=== PATIENT | female | born 1970 | race Caucasian/White ===

== ENCOUNTER → 2017-04-15 | Outpatient (CLI) | payer BC ==
--- NOTE | 2017-04-15 14:00 | MR ---
EXAMINATION TYPE: MR cervical spine wo con DATE OF EXAM: 04/15/2017 1:52 PM COMPARISON: NONE HISTORY: Neck/charan shoulder pain, headaches, weakness rt arm x 2 years Multiplanar MultiSpin echo imaging of the cervical spine was performed. Comparison: none C2-C3: No evidence for degenerative disc disease. No disc bulge/herniation or protrusion. No Canal stenosis. Foramina are patent bilaterally. C3-C4: No evidence for degenerative disc disease. No disc bulge/herniation or protrusion. No Canal stenosis. Foramina are patent bilaterally. C4-C5: No evidence for degenerative disc disease. No disc bulge/herniation or protrusion. No Canal stenosis. Foramina are patent bilaterally. C5-C6: Mild disc desiccation is noted. Broad-based posterior disc bulge with mild effacement ventral thecal sac. No evidence for kitty disc herniation or central stenosis. Foramina are patent bilaterall y. C6-C7: No evidence for degenerative disc disease. No disc bulge/herniation or protrusion. No Canal stenosis. Foramina are patent bilaterally. C7-T1: No evidence for degenerative disc disease. No disc bulge/herniation or protrusion. No Canal stenosis. Foramina are patent bilaterally. Cervical segments are intact. There is normal alignment. Cervical spinal cord is of normal signal. Craniovertebral junction relationships are within normal limits. Incidental thoracic scoliosis conv ex to the left. IMPRESSION: 1. C5-C6: Mild disc desiccation is noted. Broad-based posterior disc bulge with mild effacement ventr al thecal sac
== END | disposition home or self-care (01) ==
LOC: RADMRIMAIN 12:44
PROVIDERS: ATTEND Internal Medicine
DX: M50.222 Other cervical disc displacement at C5-C6 level (principal)
CPT/HCPCS: 72141

== ENCOUNTER → 2017-11-19 | Outpatient (CLI) | payer BC ==
--- NOTE | 2017-11-19 10:17 | MM ---
Reason for exam: screening (asymptomatic). Baseline mammogram. Physical Findings: Nurse did not find any significant physical abnormalities on exam. MG Screening Mammo w CAD Bilateral CC and MLO view(s) were taken. The breast tissue is heterogeneously dense. This may lower the sensitivity of mammography. No suspicious calcifications or masses are seen. There is no discrete abnormality. These results were verbally communicated with the patient and result sheet given to the patient on 11/19/17. ASSESSMENT: Negative, BI-RAD 1 RECOMMENDATION: Routine screening mammogram of both breasts in 1 year.
== END | disposition home or self-care (01) ==
LOC: RADMAMWWP 09:29
PROVIDERS: ATTEND Internal Medicine
DX: Z12.31 Encounter for screening mammogram for malignant neoplasm of breast (principal)
CPT/HCPCS: 77067

== ENCOUNTER → 2018-01-05 | Outpatient (CLI) | payer BC | END | disposition home or self-care (01) | LOC: RADXRMAIN 10:11 | PROVIDERS: ATTEND Podiatrist Foot Surgery | DX: Z53.9 Procedure and treatment not carried out, unspecified reason (principal) ==

== ENCOUNTER 2018-01-20 04:18 | Emergency (ER) | payer BC ==
[2018-01-20] MEDS ORDERED: NITROGLYCERIN SL TABS 0.4 MG TAB SUBLINGUAL STA (04:40)
[2018-01-20] MEDS ORDERED: ASPIRIN 81 MG PO STA (04:40)
[2018-01-20] MEDS ORDERED: MORPHINE SULFATE 4 MG/ML SYRINGE IVP STA (04:40)
[2018-01-20 04:54] LABS: Basophils % (A) 1 %; Eosinophils # (A) 0.1 k/uL (0-0.7); Eosinophils % (A) 2 %; HGB 14.4 gm/dL (11.4-16.0); Lymphocytes # (A) 2.3 k/uL (1.0-4.8); Lymphocytes % (A) 30 %; MCH 29.4 pg (25.0-35.0); MCHC 34.2 g/dL (31.0-37.0); MCV 86.1 fL (80.0-100.0); Mean Platelet Volume 7.3; Monocytes # (A) 0.4 k/uL (0-1.0); Monocytes % (A) 5 %; Neutrophils # (A) 4.7 k/uL (1.3-7.7); Neutrophils % (A) 62 %; Platelet Count 310 k/uL (150-450); RBC 4.87 m/uL (3.80-5.40); RDW 12.8 % (11.5-15.5); WBC 7.7 k/uL (3.8-10.6)
[2018-01-20 05:02] LABS: ALT 27 U/L (9-52); AST 26 U/L (14-36); Albumin 4.7 g/dL (3.5-5.0); Alkaline Phosphatase 82 U/L (38-126); Anion Gap 12 mmol/L; Blood Urea Nitrogen 16 mg/dL (7-17); Calcium 9.4 mg/dL (8.4-10.2); Carbon Dioxide 26 mmol/L (22-30); Chloride 104 mmol/L (98-107); Glucose 101 mg/dL (74-99); Magnesium 1.9 mg/dL (1.6-2.3); Potassium 4.2 mmol/L (3.5-5.1); Sodium 142 mmol/L (137-145); Total Bilirubin 0.5 mg/dL (0.2-1.3); Total Protein 7.5 g/dL (6.3-8.2)
--- NOTE | 2018-01-20 05:05 | ED ---
Chest Pain HPI - General Chief Complaint: Chest Pain Stated Complaint: Rib Pressure, SOB Time Seen by Provider: 01/20/18 04:28 Source: patient Mode of arrival: ambulatory Limitations: no limitations - History of Present Illness Initial Comments: 47 years O female comes in with the chest pain chest pressure over the left side of the chest for ongoing for last 2 months now she said the symptoms got worse over the last 2-3 days and she is also short winded with minimal activity she been nauseous she had cold sweats no vomiting though and chest pain now gets worse with deep breaths, she denies any history of coronary artery disease he is a nonsmoker now according once a week family history she do not know about her family history. She denies any headache no neck stiffness has a chest pain has shortness of breath no abdominal pain no frequency urgency dysuria or symptoms of TIA or CVA - Related Data Home Medications Medication Instructions Recorded Confirmed Ibuprofen [Motrin] 800 mg PO DAILY PRN 01/20/18 01/20/18 LORazepam [Ativan] 0.5 mg PO DAILY PRN 01/20/18 01/20/18 Allergies Allergy/AdvReac Type Severity Reaction Status Date / Time No Known Allergies Allergy Verified 01/20/18 04:25 Review of Systems ROS Statement: Those systems with pertinent positive or pertinent negative responses have been documented in the HPI. ROS Other: All systems not noted in ROS Statement are negative. EKG Findings - EKG Comments: EKG Findings:: G is a normal sinus rhythm ventricular rate is 71 AR interval is 136 QRS duration is 84 QT/QTc is 390/420 8D of this EKG reveals T-wave inversion in lead [address] elevation or ST depression noticed in other leads, also noticed T-wave inversion in lead V1 Past Medical History Past Medical History: No Reported History History of Any Multi-Drug Resistant Organisms: None Reported Past Surgical History: Hysterectomy Additional Past Surgical History / Comment(s): ovarian cyst removal X2 Past Psychological History: No Psychological Hx Reported Smoking Status: Former smoker Past Alcohol Use History: None Reported Past Drug Use History: None Reported General Exam - General Exam Comments Initial Comments: General: The patient is awake and alert, in no distress, and does not appear acutely ill. Skin: Skin is warm and dry and no rashes or lesions are noted. Eye: Pupils are equal, round and reactive to light, extra-ocular movements are intact; there is normal conjunctiva bilaterally. Ears, nose, mouth and throat: There are moist mucous membranes and no oral lesions. Neck: The neck is supple, there is no tenderness or JVD. Cardiovascular: There is a regular rate and rhythm. No murmur, rub or gallop is appreciated. Respiratory: To auscultation bilateral, no wheezing no rhonchi no distress respiratory gong noticed Gastrointestinal: Soft, non-distended, non-tender abdomen without masses or organomegaly noted. There is no rebound or guarding present. Bowel sounds are unremarkable. Back: There is no tenderness to palpation in the midline. There is no obvious deformity. Musculoskeletal: Normal ROM, no tenderness, There is no pedal edema. There is no calf tenderness or swelling. No cords were appreciated. Neurological: CN II-XII intact, Cranial nerves III through XII are intact. There are no obvious motor or sensory deficits. Coordination appears grossly intact. Speech is normal. Psychiatric: Cooperative, appropriate mood & affect, normal judgment. 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 Cates Disposition Clinical Impression: Chest pain Disposition: HOME SELF-CARE Condition: Good Instructions: Chest Pain (ED) Is patient prescribed a controlled substance at d/c from ED?: No If prescribed controlled substance>3 days was MAPS reviewed?: No When asked, does pt state using other controlled substances?: No Referrals: Sabi Ley MD [Primary Care Provider] - 1-2 days Davide Wells MD [STAFF PHYSICIAN] - 1-2 days
[2018-01-20 05:09] VITALS: BP 138/83; PULSE 69; RESP 16
[2018-01-20 05:10] LABS: D-Dimer 0.23 mg/L FEU (<0.60); Partial Thromboplastin Time 23.1 sec (22.0-30.0); Prothrombin Time 9.5 sec (9.0-12.0)
[2018-01-20 05:15] LABS: Creatine Kinase 90 U/L (30-135)
--- NOTE | 2018-01-20 05:16 | XR ---
EXAM: XR Chest, 2 Views CLINICAL HISTORY: Reason: Chest Pain TECHNIQUE: Frontal and lateral views of the chest. COMPARISON: No relevant prior studies available. FINDINGS: Lungs: Unremarkable. No consolidation. Left lower lobe airspace disease favoring atelectasis. Pleural space: Unremarkable. No pneumothorax. Heart: Unremarkable. No cardiomegaly. Mediastinum: Unremarkable. Bones/joints: Unremarkable. IMPRESSION: 1. Left lower lobe airspace opacities favoring atelectasis.
[2018-01-20 05:28] LABS: Creatine Kinase MB 1.7 ng/mL (0.0-2.4); Troponin I <0.012 ng/mL (0.000-0.034)
[2018-01-20 06:00] VITALS: TEMP 98.7
== END 2018-01-20 05:54 | disposition home or self-care (01) ==
LOC: EC 04:18
DX: R07.9 Chest pain, unspecified (principal); Z87.891 Personal history of nicotine dependence; R11.0 Nausea; R06.02 Shortness of breath
CPT/HCPCS: 36415; 93005; 85379; 80053; 82550; 82553; 83735; 84484; 85025; 85610; 85730; 71046; 99285; 96374; J2270

== ENCOUNTER 2019-01-25 17:14 | Emergency (ER) | payer BC, OTHER ==
[2019-01-25 17:20] VITALS: TEMP 98.1
[2019-01-25] MEDS ORDERED: KETOROLAC 60 MG/2 ML VIAL IM STA (19:00)
[2019-01-25] MEDS ORDERED: DIPH,PERTUS(ACELL)TETVAC-LF 0.5 ML VIAL IM ONE (19:01)
--- NOTE | 2019-01-25 19:03 | ED ---
General Adult HPI - General Chief complaint: Extremity Injury, Lower Stated complaint: [facility] - leg/arm injury Time Seen by Provider: 01/25/19 17:23 Source: patient, RN notes reviewed, old records reviewed Mode of arrival: ambulatory Limitations: no limitations - History of Present Illness Initial comments: 48-year-old female patient past history of hysterectomy presents to ED with injury which she states was occurred at work. Patient states that a metal bar fell on her left humerus region as well as her left digit. Claritin. Patient does have some bruising in her left biceps region as well as her left distal femur. Patient states that she has had pain with ambulation. Patient denies any trauma to head or neck. Patient denies any other complaints. Systemic: Pt denies fatigue, myalgia, fever/chills, rash. Pt denies weakness, night sweats, weight loss. Neuro: Pt denies headache, visual disturbances, syncope or pre-syncope. HEENT: Pt denies ocular discharge or irritation, otalgia, rhinorrhea, pharyngitis or notable lymphadenopathy. Cardiopulmonary: Pt denies chest pain, SOB, heart palpitations, dyspnea on exertion. Abdominal/GI: Pt denies abdominal pain, n/v/d. : Pt denies dysuria, burning w/ urination, frequency/urgency. Denies new onset urinary or bowel incontinence. MSK: Pt denies myalgia, loss of strength or function in extremities. Neuro: Pt denies new onset weakness, paresthesias. - Related Data Home Medications Medication Instructions Recorded Confirmed No Known Home Medications 01/25/19 01/25/19 Allergies Allergy/AdvReac Type Severity Reaction Status Date / Time No Known Allergies Allergy Verified 01/25/19 17:20 Review of Systems ROS Statement: Those systems with pertinent positive or pertinent negative responses have been documented in the HPI. ROS Other: All systems not noted in ROS Statement are negative. Past Medical History Past Medical History: No Reported History History of Any Multi-Drug Resistant Organisms: None Reported Past Surgical History: Hysterectomy Additional Past Surgical History / Comment(s): ovarian cyst removal X2 Past Psychological History: No Psychological Hx Reported Smoking Status: Former smoker Past Alcohol Use History: None Reported Past Drug Use History: None Reported General Exam - General Exam Comments Initial Comments: Constitutional: NAD, AOX3, Pt has pleasant affect. HEENT: NC/AT, trachea midline, neck supple, no lymphadenopathy. Posterior pharynx non erythematous, without exudates. External ears appear normal, without discharge. Mucous membranes moist. Eyes PERRLA, EOM intact. There is no scleral icterus. No pallor noted. Cardiopulmonary: RRR, no murmurs, rubs or gallops, no JVD noted. Lungs CTAB in anterior and posterior rodríguez. No peripheral edema. Abdominal exam: Abdomen soft and non-distended. Abdomen non-tender to palpation in all 4 quadrants. Bowel sounds active in LLQ. No hepatosplenomegaly. No ecchymosis Neuro: CN II-XII grossly intact. No nuchal rigidity. MSK: Mild abrasion and bruise noted at distal left femur. Patient is active tenderness to range of motion of the knee. Patient is able to bear weight with pain. Mild ecchymoses and abrasion noted at left humerus region. Patient does have mild tenderness to palpation in this region. Full active range of motion of elbow. No other areas of noted injury or pain in upper or lower extremities. No posterior calf tenderness bilaterally, homans sign negative bilaterally. Posterior tibialis and radial pulse +2 bilaterally. Sensation intact in upper and lower extremities. Full active ROM in upper and lower extremities, 5/5 stregnth. Limitations: no limitations Course Vital Signs 01/25/19 17:18 Temperature 98.1 F Pulse Rate 75 Respiratory 16 Rate Blood Pressure 135/95 O2 Sat by Pulse 97 Oximetry Medical Decision Making - Medical Decision Making 48-year-old female patient past history of hysterectomy presents to ED with injury which she states was occurred at work. Patient states that a metal bar fell on her left humerus region as well as her left digit. Claritin. Patient does have some bruising in her left biceps region as well as her left distal femur. Patient states that she has had pain with ambulation. Patient denies any trauma to head or neck. Patient denies any other complaints. Patient also in stable, afebrile. Physical exam displayed: Mild abrasion and bruise noted at distal left femur. Patient is active tenderness to range of motion of the knee. Patient is able to bear weight with pain. Mild ecchymoses and abrasion noted at left humerus region. Patient does have mild tenderness to palpation in this region. Full active range of motion of elbow. No other areas of noted injury or pain in upper or lower extremities. No posterior calf tenderness bilaterally, homans sign negative bilaterally. Posterior tibialis and radial pulse +2 bilaterally. Sensation intact in upper and lower extremities. Full active ROM in upper and lower extremities, 5/5 stregnth. Plain film of the knee, humerus, femur, lower down display acute process. Patient discharged. Patient follow up with primary care provider. Patient brought orthopedic consult if pain continues. Case discussed with Dr. Snowden. Disposition Clinical Impression: Contusion, Abrasion Disposition: HOME SELF-CARE Condition: Stable Additional Instructions: Patient to adhere to previously discussed treatment plan and will take medication(s) as directed. Patient to follow up with PCP in 1-2 days. Patient to return to ED if symptoms do not improve. Follow-up with orthopedic consult. Follow-up with [facility] or primary care provider for return to work. Return to ER if condition worsens. Is patient prescribed a controlled substance at d/c from ED?: No Referrals: Sabi Ley MD [Primary Care Provider] - 1-2 days Sushil Neal MD [Medical Doctor] - 1-2 days
--- NOTE | 2019-01-25 19:07 | XR ---
EXAMINATION TYPE: XR femur LT DATE OF EXAM: 01/25/2019 COMPARISON: NONE HISTORY: Trauma. Pain. TECHNIQUE: 4 views FINDINGS: I see no fracture nor dislocation. Hip joint and knee joint appear intact. Soft tissues roly ear normal. IMPRESSION: Negative left femur exam.
--- NOTE | 2019-01-25 19:08 | XR ---
EXAMINATION TYPE: XR elbow complete LT DATE OF EXAM: 01/25/2019 COMPARISON: NONE HISTORY: Pain. Trauma. TECHNIQUE: 3 views FINDINGS: Joint spaces are normal. There is no sign of elbow joint effusion. Soft tissues appear norm al. There is no evidence of a fracture. IMPRESSION: Negative left elbow exam.
--- NOTE | 2019-01-25 19:08 | XR ---
EXAMINATION TYPE: XR knee 4V LT DATE OF EXAM: 01/25/2019 COMPARISON: NONE HISTORY: Knee pain TECHNIQUE: 4 views FINDINGS: I see no fracture nor dislocation. Joint spaces are normal. There is no sign of a knee join t effusion. IMPRESSION: Negative left knee exam.
--- NOTE | 2019-01-25 19:09 | XR ---
EXAMINATION TYPE: XR humerus LT DATE OF EXAM: 01/25/2019 COMPARISON: NONE HISTORY: Pain TECHNIQUE: 2 views FINDINGS: Shoulder joint and elbow joint appear intact. There are no pathologic calcifications. I see no fracture. IMPRESSION: Negative left humerus exam.
[2019-01-25 20:09] VITALS: BP 139/92; PULSE 83; RESP 18
== END 2019-01-25 20:08 | disposition home or self-care (01) ==
LOC: EC 17:14
DX: S70.12XA Contusion of left thigh, initial encounter (principal); S40.022A Contusion of left upper arm, initial encounter; Z87.891 Personal history of nicotine dependence; Z23 Encounter for immunization; W20.8XXA Other cause of strike by thrown, projected or falling object, initial encounter; Y92.69 Other specified industrial and construction area as the place of occurrence of the external cause; Y99.0 Civilian activity done for income or pay
CPT/HCPCS: 73552; 73060; 73080; 73564; 90715; 99284; 96372; 90471; J1885

== ENCOUNTER 2019-05-19 12:41 | Day surgery (SDC) | payer BC ==
[2019-05-13 11:25] VITALS: BMI 29.7
[~2019-05-19 12:41] MED LIST: DEXAMETHASONE SOD PHOSPHATE 10 MG/ML 1 ML VIAL IV ONE; HYDROmorphone 0.5 MG/0.5 ML SYRINGE IVP PRN; LACTATED RINGERS 1,000 ML IV SCH; LIDOCAINE 1% 20 ML VIAL (10MG/ML) FOR IV START INTRADERMA PRN; MIDAZOLAM 2 MG/2 ML VIAL IV PRN; ONDANSETRON 4 MG/2 ML VIAL IVP ONE; Pre Op ABX Message 1 EACH MISC MISCELLANE ONE; fentaNYL (PF) 50 MCG/ML 2 ML AMP IV PRN
[2019-05-19 12:57] VITALS: TEMP 97.8
[2019-05-19] MEDS ORDERED: LACTATED RINGERS 1,000 ML IV ONE (12:58)
[2019-05-19] MEDS ORDERED: LIDOCAINE 1% INJ 10MG/ML (20 ML MDV) ONE (13:50)
[2019-05-19] MEDS ORDERED: PROPOFOL 10 MG/ML 20 ML VIAL IV ONE (13:50)
[2019-05-19] MEDS ORDERED: fentaNYL (PF) 50 MCG/ML 2 ML AMP ONE (13:50)
[2019-05-19] MEDS ORDERED: MIDAZOLAM 2 MG/2 ML VIAL ONE (13:50)
[2019-05-19] MEDS ORDERED: LIDOCAINE 1% (PF) 10 MG/ML (30 ML SDV) SQ ONE (13:56)
[2019-05-19 14:39] VITALS: RESP 16
--- NOTE | 2019-05-19 14:41 | P.OP ---
Date of Procedure: 05/19/19 Preoperative Diagnosis: Plantar fasciitis foot Postoperative Diagnosis: Same Procedure(s) Performed: Endoscopic plantar fasciotomy procedure performed on the patient's left foot Surgeon: Markel Gilmore Operative Findings: Unremarkable Description of Procedure: On the date of surgery the patient was taken the operating room in good condition placed on the operating table supine position where an IV was started and adequate IV anesthetic agents were utilized anesthesia was then further supplemented with approximately 10 mL of 1% Xylocaine plain given in an infiltrative block to the patient's left heel. The patient's left foot and ankle were then prepped and draped in the usual aseptic manner and over heavy web roll padding an ankle tourniquet was placed above the malleoli of the patient's left ankle The patient's left ankle was then elevated and exsanguinated of blood utilizing an Esmarch bandage and after approximately 1 minutes. A time the ankle tourniquet was inflated to approximately 250 mmHg At this time attention was directed to the medial side of the patient's left heel where an approximately 1 cm linear incision was made in line with the medial band of the plantar fascia the incision was deepened via sharp dissection down through the level of the subcutaneous tissue layers all neurovascular structures encountered were identified isolated and were retracted dissection was then carried deep down to level of the medial band of the plantar fascia whereby using a fascial elevator the plantar fascia was identified and the fascial elevator was passed along the inferior surface of the plantar fascia creating a channel for the obturator and cannula complex. This was then inserted and a lateral exit portal incision was made the endoscope was introduc ed from the medial side and L blade from the lateral side and the medial band of the plantar fascia was severed upon completion of this fascial probe was used to ensure that all fibers had been severed and when this was seen to be true the surgical site was flushed with copious amounts sterile saline solution cannula was removed and the skin edges were coaptated and maintained utilizing 4-0 nylon simple interrupted suture Adaptic Kerlix fluffs four-inch conformer and 4 inch Coban was form a compression dressing and the ankle tourniquet to the patient's left ankle was deflated. Adequate hemostatic return was seen in all digits of the patient's left foot. The patient tolerated the surgery and anesthesia well was taken recovery room in good postoperative condition.
[2019-05-19 15:11] VITALS: BP 131/86; PULSE 65
== END 2019-05-19 15:41 | disposition home or self-care (01) ==
LOC: OR 12:41
PROVIDERS: ATTEND Podiatrist Foot & Ankle Surgery
DX: M72.2 Plantar fascial fibromatosis (principal); Z90.710 Acquired absence of both cervix and uterus; Z79.52 Long term (current) use of systemic steroids; Z79.1 Long term (current) use of non-steroidal anti-inflammatories (NSAID); Z83.3 Family history of diabetes mellitus
CPT/HCPCS: 29893; J2250; J1100; J2405; J2001 ×2; J0694; J3010; J2704

== ENCOUNTER → 2019-05-28 | Outpatient (CLI) | payer BC ==
--- NOTE | 2019-05-31 09:16 | MM ---
Reason for exam: screening (asymptomatic). Last mammogram was performed 1 year and 6 months ago. History: Patient is postmenopausal. Taking estrogen. Physical Findings: A clinical breast exam by your physician is recommended on an annual basis and results should be correlated with mammographic findings. MG Screening Mammo w CAD Bilateral CC and MLO view(s) were taken. Prior study comparison: November 19, 2017, bilateral MG screening mammo w CAD. The breast tissue is heterogeneously dense. This may lower the sensitivity of mammography. There is chronic nodularity in the left breast axilla level. There is no discrete abnormality. ASSESSMENT: Negative, BI-RAD 1 RECOMMENDATION: Routine screening mammogram of both breasts in 1 year.
== END ==
LOC: RADMAMWWP 09:18
PROVIDERS: ATTEND Internal Medicine
DX: Z12.31 Encounter for screening mammogram for malignant neoplasm of breast (principal)
CPT/HCPCS: 77067

== ENCOUNTER → 2020-01-12 | Outpatient (CLI) | payer BC ==
--- NOTE | 2020-01-12 10:02 | XR ---
EXAMINATION TYPE: XR shoulder limited LT DATE OF EXAM: 01/12/2020 CLINICAL HISTORY: Shoulder pain and neck pain for a few days with limited range of motion. TECHNIQUE: 2 views of the left shoulder are obtained. COMPARISON: Left humeral radiographs dated 01/25/2019 FINDINGS: There is no acute fracture/dislocation evident in the left shoulder although evaluation fo r posterior dislocation is limited with these views. The acromioclavicular and glenohumeral joint sp aces appear within normal limits. The visualized ribs are intact and unremarkable. IMPRESSION: There is no acute fracture or dislocation in the left shoulder although evaluation for p osterior dislocation is limited with these views.
== END | disposition home or self-care (01) ==
LOC: RADXRMAIN 09:23
PROVIDERS: ATTEND Internal Medicine
DX: S43.005A Unspecified dislocation of left shoulder joint, initial encounter (principal)

== ENCOUNTER → 2020-06-12 | Outpatient (CLI) | payer BC | END | disposition home or self-care (01) | LOC: LABWHC1 08:40 | PROVIDERS: ATTEND Emergency Medicine | DX: Z20.828 Contact with and (suspected) exposure to other viral communicable diseases (principal) | CPT/HCPCS: U0003; C9803 ==

== ENCOUNTER → 2020-10-24 | Outpatient (CLI) | payer BC ==
--- NOTE | 2020-10-25 10:38 | MM ---
Reason for exam: screening (asymptomatic). Last mammogram was performed 1 year and 5 months ago. History: Patient is postmenopausal. Took estrogen for 2 months. Physical Findings: A clinical breast exam by your physician is recommended on an annual basis and results should be correlated with mammographic findings. MG Screening Mammo w CAD Bilateral CC and MLO view(s) were taken. Prior study comparison: May 28, 2019, bilateral MG screening mammo w CAD. November 19, 2017, bilateral MG screening mammo w CAD. The breast tissue is heterogeneously dense. This may lower the sensitivity of mammography. There is no discrete abnormality. No significant changes when compared with prior studies. ASSESSMENT: Negative, BI-RAD 1 RECOMMENDATION: Routine screening mammogram of both breasts in 1 year.
== END | disposition home or self-care (01) ==
LOC: RADMAMWWP 10:46
PROVIDERS: ATTEND Internal Medicine
DX: Z12.31 Encounter for screening mammogram for malignant neoplasm of breast (principal)
CPT/HCPCS: 77067

== ENCOUNTER → 2021-12-17 | Outpatient (CLI) | payer BC ==
--- NOTE | 2021-12-18 10:04 | MM ---
Reason for exam: screening (asymptomatic). Last mammogram was performed 1 year and 2 months ago. History: Patient is postmenopausal. Took estrogen for 2 months. Physical Findings: A clinical breast exam by your physician is recommended on an annual basis and results should be correlated with mammographic findings. MG Screening Mammo w CAD Bilateral CC and MLO view(s) were taken. Prior study comparison: October 24, 2020, bilateral MG screening mammo w CAD. May 28, 2019, bilateral MG screening mammo w CAD. The breast tissue is heterogeneously dense. This may lower the sensitivity of mammography. There are benign appearing round calcifications in the left breast. There is no discrete abnormality. ASSESSMENT: Benign, BI-RAD 2 RECOMMENDATION: Routine screening mammogram of both breasts in 1 year.
== END | disposition home or self-care (01) ==
LOC: RADMAMWWP 07:06
PROVIDERS: ATTEND Internal Medicine
DX: Z12.31 Encounter for screening mammogram for malignant neoplasm of breast (principal); Z78.0 Asymptomatic menopausal state
CPT/HCPCS: 77067

== ENCOUNTER 2022-07-07 15:48 | Emergency (ER) | payer BC ==
[2022-07-07] MEDS ORDERED: LIDOCAINE 1% INJ 10MG/ML (20 ML MDV) SQ STA (17:22)
--- NOTE | 2022-07-07 17:22 | XR ---
EXAMINATION TYPE: XR finger LT DATE OF EXAM: 07/07/2022 5:13 PM INDICATION: Patient age:Female; 51 years old; Reason for study: laceration fall. COMPARISON: None TECHNIQUE: Frontal, lateral and oblique views of the left finger were obtained. FINDINGS: Normal alignment of the visualized joints. No acute osseous pathology is identified. No e vidence of soft tissue swelling. No radiopaque foreign body. IMPRESSION: 1. No acute osseous pathology. 2. No radiopaque foreign body.
[2022-07-07] MEDS ORDERED: CEPHALEXIN 500MG STARTER PACK 4 CAP BTL PO STA (17:23)
[2022-07-07] MEDS ORDERED: ACET/COD 300 MG/30 MG STARTER PACK 6 TAB BTL PO STA (17:23)
--- NOTE | 2022-07-07 17:26 | ED ---
Upper Extremity HPI - General Chief Complaint: Extremity Injury, Upper Stated Complaint: Fall, finger lac Time Seen by Provider: 07/07/22 16:42 Source: patient, RN notes reviewed Mode of arrival: ambulatory Limitations: no limitations - History of Present Illness Initial Comments: This is a pleasant 51-year-old female who was doing some work in her yard. She inadvertently had an injury sustained to her left fifth finger and interdigital webspace. Patient states plant material caused a laceration. She is complaining of some burning type pain to the area. Pain is exacerbated by movement and palpation. Alleviated somewhat by rest. Patient is up-to-date on tetanus. Injury occurred about 6 hours ago. Patient has no history of immunosuppression. Patient is right-hand dominant. No headache, no fever or chills, no changes in vision or hearing, no sore throat or difficulty with speech, no neck pain, no chest pain or shortness of breath, no abdominal pain, no nausea or vomiting, no changes in urination or bowel movements, no numbness or tingling, no skin rashes or lesions. Past medical, surgical, social, and family history reviewed. Patient took Aleve prior to arrival. Complaint: Injury to:: left, hand - Related Data Home Medications Medication Instructions Recorded Confirmed Pnv No.95/Ferrous Fum/Folic AC 1 each PO DAILY 05/13/19 05/13/19 [ Multivitamin Tablet] Previous Rx's Medication Instructions Recorded Cephalexin [Keflex] 500 mg PO Q8HR 1 Days #21 cap 07/07/22 Ibuprofen [Motrin] 600 mg PO Q8HR PRN #30 tab 07/07/22 Allergies Allergy/AdvReac Type Severity Reaction Status Date / Time No Known Allergies Allergy Verified 07/07/22 16:41 Review of Systems ROS Statement: Those systems with pertinent positive or pertinent negative responses have been documented in the HPI. ROS Other: All systems not noted in ROS Statement are negative. Past Medical History Past Medical History: No Reported History Additional Past Medical History / Comment(s): Plantar Fasciitis History of Any Multi-Drug Resistant Organisms: None Reported Past Surgical History: Hysterectomy Additional Past Surgical History / Comment(s): ovarian cyst removal X2 Past Anesthesia/Blood Transfusion Reactions: No Reported Reaction Past Psychological History: No Psychological Hx Reported Smoking Status: Never smoker Past Alcohol Use History: None Reported Past Drug Use History: None Reported General Exam Limitations: no limitations General appearance: alert, in no apparent distress Head exam: Present: atraumatic, normocephalic, normal inspection Eye exam: Present: normal appearance, EOMI Neck exam: Present: normal inspection, full ROM Respiratory exam: Present: normal lung sounds bilaterally. Absent: respiratory distress Cardiovascular Exam: Present: regular rate, normal rhythm, normal heart sounds GI/Abdominal exam: Present: soft. Absent: tenderness Left Forearm Wrist exam: Present: normal inspection, full ROM. Absent: tenderness, swelling, abrasion Hand Wrist exam: Present: full ROM, tenderness, laceration (Fourth interdigital web space, no evidence of foreign body. No evidence of bony point tenderness, full range of motion with some discomfort.). Absent: swelling, abrasion, ecchymosis, deformity, crepitus, dislocation, erythema, amputation, nail avulsion, subungual hematoma Neuro motor exam: Present: wrist extension intact, thumb opposition intact, thumb IP flexion intact, thumb adduction intact, fingers 2-5 abduction intact Neurosensory exam: Present: radial nerve intact, ulnar nerve intact, median nerve intact Vascular: Present: normal capillary refill. Absent: vascular compromise, Pallo Back exam: Present: normal inspection Neurological exam: Present: alert, oriented X3, CN II-XII intact, normal gait. Absent: motor sensory deficit Psychiatric exam: Present: normal affect, normal mood Skin exam: Present: warm, dry, normal color. Absent: rash Course Vital Signs 07/07/22 16:38 Temperature 98.1 F Pulse Rate 88 Respiratory 16 Rate Blood Pressure 157/100 O2 Sat by Pulse 98 Oximetry Procedures - Laceration Laceration #1 Consent Obtained: verbal consent Indication: laceration Site: upper extremity (Left hand, fourth interdigital space) Size (cm): 2 Description: irregular, clean Depth: simple, single layer Anesthetic Used: lidocaine 1% Anesthesia Technique: local infiltration Amount (mls): 2 Pre-repair: wound explored, irrigated extensively, deep structures intact Type of Sutures: nylon Size of Sutures: 5-0 Number of Sutures: 2 Technique: simple, interrupted Patient Tolerated Procedure: well, no complications - Orthopedic Fracture Reduction Fracture #1 Consent Obtained: verbal consent Medical Decision Making - Medical Decision Making Patient counseled on wound care. Counseled extensively on signs and symptoms of infection. Placed on cephalexin 500 mg 3 times a day Note the patient's tetanus was updated. This was a wound caused by malgorzata matter. Discussed return to follow parameters. Discussed wound care. Suture removal in 10 days. Patient was told to return to the ER for any signs or symptoms worsen. Told to return immediately if any other problems arise. All questions answered. Treatment plan discussed. Patient in agreement Every effort has been made to ensure accuracy of this dictation. However, due to the limitations of electronic medical records and dictation devices, errors in charting still occur. Needle Grinder Dr. Vilchis Disposition Clinical Impression: Laceration without foreign body of left hand, initial encounter Disposition: HOME SELF-CARE Condition: Good Instructions (If sedation given, give patient instructions): Laceration (ED) Additional Instructions: Suture removal in 10 days. Wash the wound with soap and water daily. Apply thin layer of antibiotic ointment such as Triple Antibiotic ointment or Neosporin. Keep covered with a bandage. Follow-up with your regular physician as directed. Return to the ER immediately if any symptoms worsen, new symptoms arise, or any other problems develop. Take antibiotics as directed. Prescriptions: Cephalexin [Keflex] 500 mg PO Q8HR 1 Days #21 cap Ibuprofen [Motrin] 600 mg PO Q8HR PRN #30 tab PRN Reason: Pain Is patient prescribed a controlled substance at d/c from ED?: No Referrals: Nonstaff,Physician [Primary Care Provider] - 07/09/22 (As needed) Time of Disposition: 17:57
[2022-07-07] MEDS ORDERED: BACITRACIN OINT 1 EACH PACKET TOPICAL ONE (17:47)
[2022-07-07 18:11] VITALS: BP 145/97; PULSE 87; RESP 18; TEMP 98.3
== END 2022-07-07 18:11 | disposition home or self-care (01) ==
LOC: EC 15:48
DX: S61.412A Laceration without foreign body of left hand, initial encounter (principal); X58.XXXA Exposure to other specified factors, initial encounter
CPT/HCPCS: 73140; 12001; 99283; J2001

== ENCOUNTER → 2022-08-29 | Outpatient (CLI) | payer BC ==
--- NOTE | 2022-08-29 16:28 | CT ---
EXAMINATION TYPE: CT sinus wo con DATE OF EXAM: 08/29/2022 COMPARISON: None HISTORY: chronic sinusitis CT DLP: [address] of the paranasal sinuses was performed in the axial and coronal planes. Bone and soft tissue settings are submitted. The paranasal sinuses demonstrate normal aeration and development. The paranasal sinuses are free of mucosal thickening or air fluid level. Mucous retention cyst at the base of the left maxillary sinus. The osteal meatal units are patent bilaterally. The nasal septum is midline. No bony destructive changes are seen within the field of view. IMPRESSION: Mucous retention cyst at the base of the left maxillary sinus.
== END | disposition home or self-care (01) ==
LOC: RADCTMAIN 15:43
PROVIDERS: ATTEND Otolaryngology
DX: J32.9 Chronic sinusitis, unspecified (principal); J34.89 Other specified disorders of nose and nasal sinuses
CPT/HCPCS: 70486

== ENCOUNTER 2022-10-06 20:07 | Emergency (ER) | payer BC ==
[2022-10-06 20:12] VITALS: TEMP 96.7
[2022-10-06] MEDS ORDERED: DIPH,PERTUS(ACELL)TETVAC-LF 0.5 ML VIAL IM ONE (20:31)
[2022-10-06] MEDS ORDERED: MORPHINE SULFATE 4 MG/ML SYRINGE IM STA (20:32)
[2022-10-06] MEDS ORDERED: LIDOCAINE 1% INJ 10MG/ML (30 ML VIAL-PF) SQ ONE (20:32)
--- NOTE | 2022-10-06 20:40 | ED ---
Animal Bite HPI - General Chief Complaint: Animal Bite Stated Complaint: dog bite Time Seen by Provider: 10/06/22 20:15 Source: patient, RN notes reviewed Mode of arrival: ambulatory Limitations: no limitations - History of Present Illness Initial Comments: Patient is a 52-year-old female presenting to the emergency room after being bitten by her dog in the lower right leg earlier this evening. She reports that she was her two dogs with her pit bull bitting her in the right lower leg. She states that the dogs' vaccinations are all up-to-date however her tetanus shot is not. She denies falling. She denies injury to the trunk, head, neck, or any other extremity. She denies any other complaints or concerns at this time. She denies any chest pain, shortness of breath, abdominal pain, nausea, vomiting, fevers or chills. She has a past medical history significant for plantar fasciitis. She does not take any medications on a regular basis. - Related Data Home Medications Medication Instructions Recorded Confirmed Pnv No.95/Ferrous Fum/Folic AC 1 each PO DAILY 05/13/19 05/13/19 [ Multivitamin Tablet] Previous Rx's Medication Instructions Recorded Cephalexin [Keflex] 500 mg PO Q8HR 1 Days #21 cap 07/07/22 Ibuprofen [Motrin] 600 mg PO Q8HR PRN #30 tab 07/07/22 Amoxic-Pot Clav 875-125Mg 1 tab PO Q12HR 10 Days #20 tab 10/06/22 [Augmentin 875-125] Fluconazole [Diflucan] 150 mg PO ONCE 2 Days #2 tab 10/06/22 Allergies Allergy/AdvReac Type Severity Reaction Status Date / Time No Known Allergies Allergy Verified 10/06/22 20:12 Review of Systems ROS Statement: Those systems with pertinent positive or pertinent negative responses have been documented in the HPI. ROS Other: All systems not noted in ROS Statement are negative. Past Medical History Additional Past Medical History / Comment(s): Plantar Fasciitis History of Any Multi-Drug Resistant Organisms: None Reported Past Surgical History: Hysterectomy Additional Past Surgical History / Comment(s): ovarian cyst removal X2 Past Anesthesia/Blood Transfusion Reactions: No Reported Reaction Past Psychological History: No Psychological Hx Reported Smoking Status: Never smoker Past Alcohol Use History: Occasional Past Drug Use History: None Reported General Exam - General Exam Comments Initial Comments: GENERAL: No acute distress, well developed, well nourished. HEENT: Normocephalic, atraumatic. Pupils equal, round, reactive to light. Moist mucous membranes. LUNGS: No respiratory distress or use of accessory muscles. HEART: Regular rate.. ABDOMEN: Non-distended. BACK: Normal inspection. EXTREMITIES: No edema. Moves all extremities. Animal bite to right lower extremity as indicated below. No surrounding erythema, range of motion impairment or obvious bone deformity. NEUROLOGIC: Alert & oriented x 3. CN II-XII grossly intact. PSYCHIATRIC: Normal affect and behavior. DERMATOLOGIC: Irregular shaped to medial and lateral aspect of right lower leg with single puncture wound noted to the medial aspect distal to largest medial bite and scratches noted between without significant skin breakage. Wound cleansed and irrigated extensively no foreign body. Total length of lateral bite approximately 4 cm. Total length of medial bite approximately 6 cm puncture wound bite less than half a centimeter Limitations: no limitations Course Vital Signs 10/06/22 20:08 Temperature 96.7 F L Pulse Rate 109 H Respiratory 19 Rate Blood Pressure 145/102 O2 Sat by Pulse 95 Oximetry Procedures - Laceration Laceration #1 Consent Obtained: verbal consent Indication: other (Animal bite) Site: lower extremity (Right mid lateral aspect) Size (cm): 4 Description: irregular Depth: simple, single layer Anesthesia Technique: local infiltration Pre-repair: wound explored, irrigated extensively, deep structures intact Size of Sutures: 4-0 Number of Sutures: 6 Technique: simple, interrupted Patient Tolerated Procedure: well, no complications Laceration #2 Consent Obtained: verbal consent Indication: other (Animal bite) Site: lower extremity (Right mid medial aspect) Size (cm): 6 Description: irregular Depth: simple, single layer Anesthesia Technique: local infiltration Pre-repair: wound explored, irrigated extensively, deep structures intact Type of Sutures: nylon Size of Sutures: 4-0 Number of Sutures: 9 Technique: simple, interrupted Patient Tolerated Procedure: well, no complications Medical Decision Making - Medical Decision Making Was pt. sent in by a medical professional or institution (, PA, PMP CERTIFIED PROJECT MANAGER, urgent care, hospital, or assisted...) When possible be specific @ -No Did you speak to anyone other than the patient for history (EMS, parent, family, police, friend...)? What history was obtained from this source @ -No Did you review nursing and triage notes (agree or disagree)? Why? @ -I reviewed and agree with nursing and triage notes Were old charts reviewed (outside hosp., previous admission, EMS record, old EKG, old radiological studies, urgent care reports/EKG's, assisted records)? Report findings @ -No old charts were reviewed Differential Diagnosis (chest pain, altered mental status, abdominal pain women, abdominal pain men, vaginal bleeding, weakness, fever, dyspnea, syncope, headache, dizziness, GI bleed, back pain, seizure, CVA, palpatations, mental health)? @ -not applicable EKG interpreted by me (3pts min.). @ -None none X-rays interpreted by me (1pt min.). @ -X-ray right tib-fib without acute osseous pathology. No fracture or dislocation. CT interpreted by me (1pt min.). @ -None done U/S interpreted by me (1pt. min.). @ -None done What testing was considered but not performed or refused? (CT, X-rays, U/S, labs)? Why? @ -None What meds were considered but not given or refused? Why? @ -IV antibiotics considered but not given due to lack of open fracture in ability to tolerate oral antibiotic therapy. Did you discuss the management of the patient with other professionals (professionals i.e. , PA, PMP CERTIFIED PROJECT MANAGER, lab, RT, psych nurse, social worker school, hha, teacher, project control officer, heel caser)? Give summary @ -No Was smoking cessation discussed for >3mins.? @ -No Was critical care preformed (if so, how long)? @ -No Were there social determinants of health that impacted care today? How? (Homelessness, low income, unemployed, alcoholism, drug addiction, transportation, low edu. Level, literacy, decrease access to med. care, half-way, rehab)? @ -No Was there de-escalation of care discussed even if they declined (Discuss DNR or withdrawal of care, Hospice)? DNR status @ -No What co-morbidities impacted this encounter? (DM, HTN, Smoking, COPD, CAD, Cancer, CVA, ARF, Chemo, Hep., AIDS, mental health diagnosis, sleep apnea, morbid obesity)? @ -None Was patient admitted / discharged? Hospital course, mention meds given and route, prescriptions, significant lab abnormalities, going to OR and other pertinent info. @ -52-year-old female presenting to the emergency room with animal bite to the right lower limb. Animal is her dog with vaccinations up-to-date. Her tetanus is not up-to-date. Bite was from a pimple. Due to size of dog causing bite will obtain x-ray of the right lower extremity to rule out any fractures. If no fractures will proceed with loose closure after irrigation due to size of wounds with oral antibiotic therapy. Will update tetanus vaccination and give morphine for pain. X-ray of the right tib-fib negative for fracture or dislocation. No indication for further diagnostic imaging. Pain improved with morphine. Tolerated tetanus vaccination well. Loose closure to dog bite wounds to right lower extremity 2 completed without complication. Tolerated well. Education regarding wound care and suture removal reviewed at length. Discussed antibiotic therapy with patient. She reports that she develops yeast infection with oral antibiotics. Will place on both Augmentin to treat dog bite and give an empiric course of Diflucan to utilize if needed. Return parameters to the emergency room discussed at length. Questions and concerns answered. Will discharge home in stable condition with oral antibiotic therapy and wound care education. Undiagnosed new problem with uncertain prognosis? @ -No Drug Therapy requiring intensive monitoring for toxicity (Heparin, Nitro, Insulin, Cardizem)? @ -No Were any procedures done? @ -Wound irrigation and suture closure, see procedures for details. Diagnosis/symptom? @ -Dog bite Acute, or Chronic, or Acute on Chronic? @ -Acute Uncomplicated (without systemic symptoms) or Complicated (systemic symptoms)? @ -Uncomplicated Side effects of treatment? @ -No Exacerbation, Progression, or Severe Exacerbation? @ -No Poses a threat to life or bodily function? How? (Chest pain, USA, ID, pneumonia, PE, COPD, DKA, ARF, appy, cholecystitis, CVA, Diverticulitis, Homicidal, Suicidal, threat to staff... and all critical care pts) @ -No Case discussed with Dr. Taylor - Radiology Data Radiology results: report reviewed, image reviewed Disposition Clinical Impression: Bite by animal Disposition: HOME SELF-CARE Condition: Stable Instructions (If sedation given, give patient instructions): Animal Bite (ED), Care For Your Stitches (ED) Additional Instructions: Please keep wound clean and dry. Please complete course of antibiotic as prescribed. Utilize diaphragm fluid can prescription if needed if vaginal yeast infection occurs. Monitor for signs and symptoms of infection and seek medical attention as appropriate if symptoms occur. Please return to the emergency room for suture removal in 7-10 days. Your tetanus vaccination was updated today and is up-to-date for the next 10 years. Please return to the Emergency Department if symptoms worsen or any other concerns. Prescriptions: Amoxic-Pot Clav 875-125Mg [Augmentin 875-125] 1 tab PO Q12HR 10 Days #20 tab Fluconazole [Diflucan] 150 mg PO ONCE 2 Days #2 tab Is patient prescribed a controlled substance at d/c from ED?: No Referrals: Chadwick Power MD [Primary Care Provider] - 1-2 days Time of Disposition: 21:54
--- NOTE | 2022-10-06 20:51 | XR ---
EXAMINATION TYPE: XR tibia fibula RT DATE OF EXAM: 10/06/2022 COMPARISON: NONE HISTORY: Dog bite TECHNIQUE: 2 views FINDINGS: There is soft tissue deformity and lucency consistent with soft tissue air on the medial as pect of the proximal tibia I see no fracture nor dislocation. Knee joint and ankle joint appear intact IMPRESSION: Soft tissue air consistent with laceration. No fracture seen.
[2022-10-06 22:40] VITALS: BP 154/75; PULSE 70; RESP 16
== END 2022-10-06 22:40 | disposition home or self-care (01) ==
LOC: EC 20:07
DX: S81.851A Open bite, right lower leg, initial encounter (principal); Z23 Encounter for immunization; Z90.710 Acquired absence of both cervix and uterus; W54.0XXA Bitten by dog, initial encounter; Y93.89 Activity, other specified
CPT/HCPCS: 73590; 90715; 12004; 99283; 90471; 96372; J2270; J2001

== ENCOUNTER → 2023-05-07 | Outpatient (CLI) | payer BC ==
--- NOTE | 2023-05-07 09:57 | MM ---
Reason for Exam: Screening (asymptomatic). Last mammogram was performed 1 year(s) and 5 month(s) ago. Patient History: Menarche at age 17. First Full-Term at age 19. Left ovary removed at age 31. Right ovary removed at age 31. Hysterectomy at age 31. Postmenopausal. Estrogen for 2 months. Risk Values: Lauren 5 year model risk: 0.6%. NCI Lifetime model risk: 6.0%. Prior Study Comparison: 05/28/2019 Bilateral Screening Mammogram, [facility]. 10/24/2020 Bilateral Screening Mammogram, [facility]. 12/17/2021 Bilateral Screening Mammogram, [facility]. Tissue Density: The breast tissue is heterogeneously dense. This may lower the sensitivity of mammography. Findings: Analyzed By CAD. There is no suspicious group of microcalcifications or new suspicious mass in either breast. Overall Assessment: Negative, BI-RAD 1 Management: Screening Mammogram of both breasts in 1 year. . Patient should continue monthly self-breast exams. A clinical breast exam by your physician is recommended on an annual basis. This exam should not preclude additional follow-up of suspicious palpable abnormalities. Note on Lauren scores and lifetime risk: 1. A Lauren score greater than 3% is considered moderate risk. If this is the case, consider specialist referral to assess eligibility for a risk reducing agent. 2. If overall lifetime risk for the development of breast cancer is 20% or higher, the patient may qualify for future screening with alternating mammogram and breast MRI. Electronically signed and approved by: Rocky Nathan M.D. Radiologis
== END | disposition home or self-care (01) ==
LOC: RADMAMWWP 06:54
PROVIDERS: ATTEND Family Medicine
DX: Z12.31 Encounter for screening mammogram for malignant neoplasm of breast (principal); Z78.0 Asymptomatic menopausal state
CPT/HCPCS: 77067

== ENCOUNTER → 2024-08-26 | Outpatient (CLI) | payer BC ==
--- NOTE | 2024-08-27 17:59 | MM ---
Reason for Exam: Screening (asymptomatic). Last mammogram was performed 1 year(s) and 4 month(s) ago. Patient History: Menarche at age 17. First Full-Term at age 19. Left ovary removed at age 31. Right ovary removed at age 31. Hysterectomy at age 31. Postmenopausal. Estrogen for 2 months. Risk Values: Lauren 5 year model risk: 0.7%. NCI Lifetime model risk: 5.8%. Prior Study Comparison: 10/24/2020 Bilateral Screening Mammogram, [facility]. 12/17/2021 Bilateral Screening Mammogram, [facility]. 05/07/2023 Bilateral MG screening mammo w CAD, [facility]. Tissue Density: There are scattered areas of fibroglandular density. Findings: Analyzed By CAD. Asymmetric density anterior right breast and global asymmetry superior left breast both remain unchanged. There is no suspicious group of microcalcifications or new suspicious mass in either breast. Overall Assessment: Benign, BI-RAD 2 Management: Screening Mammogram of both breasts in 1 year. . Patient should continue monthly self-breast exams. A clinical breast exam by your physician is recommended on an annual basis. This exam should not preclude additional follow-up of suspicious palpable abnormalities. Note on Lauren scores and lifetime risk: 1. A Lauren score greater than 3% is considered moderate risk. If this is the case, consider specialist referral to assess eligibility for a risk reducing agent. 2. If overall lifetime risk for the development of breast cancer is 20% or higher, the patient may qualify for future screening with alternating mammogram and breast MRI. [facility], , 08/27/2024 5:56 PM. Electronically signed and approved by: Mitul Goff M.D. Radiologist
== END | disposition home or self-care (01) ==
LOC: RADMAMWWP 07:54
PROVIDERS: ATTEND Family Medicine
DX: Z12.31 Encounter for screening mammogram for malignant neoplasm of breast (principal); Z78.0 Asymptomatic menopausal state; Z90.722 Acquired absence of ovaries, bilateral; R92.323 Mammographic fibroglandular density, bilateral breasts
CPT/HCPCS: 77067